=== PATIENT | male | born 1995 ===

== ENCOUNTER 2018-01-13 12:51 | Emergency (ER) | payer SELFPAY ==
[2018-01-13 13:20] LABS: #Basophils 0.1 thou/uL (0.0-0.2); #Lymphocytes 0.9 thou/uL (1.20-3.40); #Monocytes 0.6 thou/uL (0.11-0.59); #Neutrophils 7.2 thou/uL (1.40-6.50); %Basophils 0.7 % (0.0-1.0); %Eosinophils 0.3 % (0.0-10.0); %Lymphocytes 10.8 % (21.0-51.0); %Monocytes 6.3 % (0.0-10.0); Hemoglobin 15.6 g/dL (14.0-18.0); Mean Corpuscular HGB CONC 33.2 g/dL (32.0-36.0); Mean Corpuscular Hemoglobin 30.2 pg (27.0-31.0); Mean Corpuscular Volume 91.1 fl (80.0-94.0); Mean Platelet Volume 7.1 fL (7.4-10.4); Platelet Count 187 thou/uL (130-400); RBC Distribution Width 13.8 % (11.5-14.5); Red Blood Cell (RBC) Count 5.17 mill/uL (4.70-6.10); White Blood Cell (WBC) Count 8.7 thou/uL (4.8-10.8)
[2018-01-13 13:41] LABS: ALT (SGPT) 211 U/L (8-55); AST (SGOT) 144 U/L (5-34); Albumin 3.8 g/dL (3.5-5.0); Alkaline Phosphatase 81 U/L (40-150); Anion Gap 11 mmol/L (10-20); BUN (Urea Nitrogen) 19 mg/dL (8.9-20.6); CK (CPK) 212 U/L (30-200); Calc. Creatinine Clearance 0 mL/min (70-130); Calcium 9.1 mg/dL (7.8-10.44); Carbon Dioxide 32 mmol/L (22-29); Chloride 94 mmol/L (98-107); Estimated GFR-MDRD 81; Glucose 84 mg/dL (70-105); Potassium 3.2 mmol/L (3.5-5.1); Protein, Total 6.8 g/dL (6.0-8.3); Sodium 134 mmol/L (136-145)
[2018-01-13 13:42] LABS: CKMB 2.7 ng/mL (0-6.6); Troponin I Less than 0.010 ng/mL (< 0.028)
[2018-01-13] MEDS ORDERED: hydrALAZINE 20 MG/ML VIAL ONE (15:43)
[2018-01-13] MEDS ORDERED: Potassium Chloride 20 MEQ TAB ONE (15:49)
[2018-01-13] MEDS ORDERED: hydrALAZINE 25 MG TAB ONE (16:35)
== END 2018-01-13 17:00 | disposition home or self-care (01) ==
LOC: ERS 12:51
DX: R03.0 Elevated blood-pressure reading, without diagnosis of hypertension (principal); E87.6 Hypokalemia; R80.9 Proteinuria, unspecified; R74.8 Abnormal levels of other serum enzymes
CPT/HCPCS: 36415; 36416; 80053; 82553; 83690; 84443; 84484; 85025; 93005; 94760; J0360